=== PATIENT | male | born 1960 | race African-American/Black ===

== ENCOUNTER → 2017-03-29 | Outpatient (CLI) | payer OTHER ==
--- NOTE | 2017-03-29 18:47 | CT ---
EXAMINATION TYPE: CT angio chest DATE OF EXAM: 03/29/2017 5:59 PM COMPARISON: NONE HISTORY: Difficulty breathing with exertion x [address] DLP: 635.00 mGycm Automated exposure control for dose reduction was used. CONTRAST: CTA scan of the thorax is performed with IV Contrast, patient injected with 73 mL of Omnipaque 350, p ulmonary embolism protocol. There are 3-D post processed images.. FINDINGS: There is normal contrast opacification of the thoracic aorta. There is no sign of aneurysm or dissect ion. There is no pericardial effusion. Heart appears enlarged. There is no pleural effusion. There is mild groundglass interstitial density at the lung bases. I see no filling defects in the pulmonary a rteries. There are no hilar masses. There is no mediastinal adenopathy. The bony thorax appears intac t. IMPRESSION: MILD CARDIOMEGALY. NO EVIDENCE OF PULMONARY EMBOLISM. INTERSTITIAL INFILTRATES AT THE LUNG BASES ARE NONSPECIFIC AND COULD RELATE TO CHRONIC INTERSTITIAL LUNG DISEASE.
== END | disposition home or self-care (01) ==
LOC: RADCTMAIN 17:14
PROVIDERS: ATTEND Internal Medicine Critical Care Medicine
DX: R06.00 Dyspnea, unspecified (principal)
CPT/HCPCS: 71275; Q9967

== ENCOUNTER 2017-06-26 10:51 | Day surgery (SDC) | payer OTHER ==
[2017-06-25 10:59] VITALS: BMI 34.2
[~2017-06-26 10:51] MED LIST: LACTATED RINGERS 1,000 ML IV SCH
[2017-06-26 11:58] VITALS: RESP 16; TEMP 98.1
[2017-06-26] MEDS ORDERED: PROPOFOL 10 MG/ML 20 ML VIAL IV ONE (12:09)
--- NOTE | 2017-06-26 12:25 | P.PCN ---
Date of Procedure: 06/26/17 Procedure(s) Performed: BRIEF HISTORY: Patient is a 56-year-old pleasant white male, scheduled for an elective colonoscopy as a part of evaluation of chronic intermittent diarrhea for the last several years duration. He has these episodes once because of the last 4 a day and resolved. In between episodes disease symptomatically. He denies any rectal bleeding. PROCEDURE PERFORMED: Colonoscopy. PREOPERATIVE DIAGNOSIS: Change in bowel habits and intermittent abdominal pain. IV sedation per Anesthesia. PROCEDURE: After informed consent was obtained, the patient, was brought into the endoscopy unit. IV sedation was administered by Anesthesia under continuous monitoring. Digital rectal examination was normal. Initially the Olympus CF- 160 flexible video colonoscope was then inserted in the rectum, gradually advanced into the cecum without any difficulty. Careful examination was performed as the scope was gradually being withdrawn. Ileocecal valve and the appendiceal orifice were visualized and appeared normal. Prep was excellent. Mucosa of the cecum, ascending colon, transverse colon, descending colon, sigmoid colon, and rectum appeared normal. Retroflexion was performed in the rectum and small internal hemorrhoids were seen. The patient tolerated the procedure well. IMPRESSION: Normal-appearing colon from rectum to cecum with no evidence of colorectal neoplasia. Small internal hemorrhoids. RECOMMENDATIONS: Findings of this examination were discussed with the patient as well as his family. He was advised to have a repeat screening colonoscopy in 10 years.
[2017-06-26 12:58] VITALS: BP 120/75; PULSE 76
== END 2017-06-26 13:29 | disposition home or self-care (01) ==
LOC: ORWHC2ENDO 10:51
PROVIDERS: ATTEND Internal Medicine Gastroenterology
DX: K52.9 Noninfective gastroenteritis and colitis, unspecified (principal); F41.9 Anxiety disorder, unspecified; J45.909 Unspecified asthma, uncomplicated; K21.9 Gastro-esophageal reflux disease without esophagitis; F39 Unspecified mood [affective] disorder; Z79.899 Other long term (current) drug therapy; R19.4 Change in bowel habit; K64.8 Other hemorrhoids
CPT/HCPCS: 45378; J2704

== ENCOUNTER → 2018-02-15 | Outpatient (CLI) | payer OTHER ==
--- NOTE | 2018-02-15 11:02 | CT ---
EXAMINATION TYPE: CT chest wo con DATE OF EXAM: 02/15/2018 COMPARISON: 03/29/2017 HISTORY: Patient complains of increasing difficulty breathing, especially when exercising. CT DLP: 272 mGycm. Automated Exposure Control for Dose Reduction was Utilized. TECHNIQUE: CT scan of the thorax is performed without IV contrast and with high-resolution technique . FINDINGS: LUNGS: The lungs are grossly clear, there is no concerning parenchymal mass or nodule identified. T here is no pleural effusion or pneumothorax seen. The tracheobronchial tree is patent. Central and b asilar mild bronchiectasis noted. Peripheral interlobular septal thickening is minimal. MEDIASTINUM: Lack of IV contrast is noted to limit evaluation for mediastinal and especially hilar ad enopathy. There are no definitive greater than 1 cm hilar or mediastinal lymph nodes. Stable mild car diomegaly. OTHER: No additional significant abnormality is seen. IMPRESSION: 1. Mild Central and basilar bronchiectasis. There is very minimal peripheral interlobular septal thic kening primarily involving the mid and upper lung zones which is nonspecific but can be associated wi th early interstitial lung disease correlate clinically.
== END | disposition home or self-care (01) ==
LOC: RADCTMAIN 09:34
PROVIDERS: ATTEND Internal Medicine Critical Care Medicine
DX: J47.9 Bronchiectasis, uncomplicated (principal)
CPT/HCPCS: 71250

== ENCOUNTER → 2018-08-14 | Outpatient (CLI) | payer OTHER ==
--- NOTE | 2018-08-14 10:49 | MM ---
Reason for exam: clinical finding. Indicated problem(s): lump or thickening in the left breast. Physical Findings: Nurse Summary: 1 x 1cm nodule in the right breast at posterior nipple and a 1 x 2cm nodule in the left breast at posterior nipple (nurse ts). [facility] Diagnostic Mammo w CAD TATYANA Bilateral CC and MLO view(s) were taken. Right flame shaped subareolar fibroglandular tissue. These results were verbally communicated with the patient and result sheet given to the patient on 08/14/18. ASSESSMENT: Incomplete: need additional imaging evaluation, BI-RAD 0 RECOMMENDATION: Ultrasound of the left breast. Manage on a clinical basis with regard to bilateral gynecomastia.
--- NOTE | 2018-08-14 10:52 | USB ---
Reason for exam: additional evaluation requested from abnormal screening. US Breast LT Left complete breast ultrasound includes all four quadrants, the retroareolar region and axilla. Finding demonstrates a 3.0 x 2.4 x 0.8cm irregular, hypoechoic lesion at the nipple. Right limited breast ultrasound including focal area of concern, retroareolar and axilla demonstrates a 1.6 x 0.5 x 0.7cm irregular, hypoechoic lesion at the nipple. Consistent with gynecomastia left slightly larger than right. These results were verbally communicated with the patient and result sheet given to the patient on 08/14/18. ASSESSMENT: Benign, BI-RAD 2 RECOMMENDATION: Clinical correlation of both breasts. Manage on a clinical basis with regard to left greater than right gynecomastia.
== END | disposition home or self-care (01) ==
LOC: RADMAMWWP 08:23
PROVIDERS: ATTEND Family Medicine
DX: N63.0 Unspecified lump in unspecified breast (principal)
CPT/HCPCS: 77066

== ENCOUNTER → 2019-02-09 | Outpatient (CLI) | payer OTHER ==
--- NOTE | 2019-02-09 18:31 | CT ---
EXAMINATION TYPE: High-resolution CT chest DATE OF EXAM: 02/09/2019 COMPARISON: 02/15/2018 HISTORY: 58-year-old male Interstitial pulmonary disease. TECHNIQUE: Contiguous high-resolution axial scanning of the chest without IV contrast utilizing 1 mm slice thickness and 1 cm gap per HRCT protocol. Both prone and supine imaging was performed. CT DLP: 1113.5 mGycm Automated exposure control for dose reduction was used. FINDINGS: Are normal size without pericardial effusion. Aorta normal caliber with variant direct takeoff of the left vertebral artery directly from the aorti c arch and bovine configuration. No thoracic lymphadenopathy by CT size criteria. Moderate left and mild right gynecomastia slightly p rogressed from patient's prior exam. Evaluation of the lungs shows mild bronchial wall thickening. No honeycombing, septal lines, dominant groundglass, tree-in-bud opacities, centrilobular nodules, significant bronchiectasis, or thickening of the bronchovascular bundles. HRCT technique limits assessment for small pulmonary nodules. No con solidation or pleural effusion. Visualized upper abdomen show slight diminished attenuation of the liver suggesting fatty infiltratio n. Bones: No osseous destructive process. IMPRESSION: 1. VERY MILD BRONCHIAL WALL THICKENING COULD REPRESENT BRONCHITIS OR ASTHMA. NO SPECIFIC HRCT FINDING S OF INTERSTITIAL LUNG DISEASE OR INTERSTITIAL PNEUMONITIS. THE FINDINGS DESCRIBED PREVIOUSLY ARE NOT APPRECIABLE ON THE CURRENT EXAM. 2. SUGGESTION OF FATTY INFILTRATION OF THE LIVER.
== END ==
LOC: RADCTMAIN 16:12
PROVIDERS: ATTEND Internal Medicine Critical Care Medicine
DX: J84.9 Interstitial pulmonary disease, unspecified (principal)
CPT/HCPCS: 71250

== ENCOUNTER → 2020-03-17 | Outpatient (CLI) | payer OTHER ==
--- NOTE | 2020-03-17 14:40 | CT ---
EXAMINATION TYPE: CT chest wo con DATE OF EXAM: 03/17/2020 COMPARISON: 02/09/2019 HISTORY: increasing difficulty breathing during exertion CT DLP: 1212.7 mGycm. Automated Exposure Control for Dose Reduction was Utilized. TECHNIQUE: CT scan of the thorax is performed without IV contrast. FINDINGS: LUNGS: The lungs are grossly clear, there is no concerning parenchymal mass or nodule identified. T here is no pleural effusion or pneumothorax seen. The tracheobronchial tree is patent. Persistent mi ld peribronchial wall thickening. No interlobular septal thickening. No honeycombing. There is mild b asilar bronchiectasis. Linear changes involving the left upper lobe suggestive of atelectasis or scar . MEDIASTINUM: Lack of IV contrast is noted to limit evaluation for mediastinal and especially hilar ad enopathy. There are no definitive greater than 1 cm hilar or mediastinal lymph nodes. No cardiomega ly or pericardial effusion is seen. Vertebral artery originates from the aortic arch. Bovine arch not ed. Heart is enlarged. OTHER: Diminished attenuation the liver suggestive of fatty infiltration. There is gynecomastia. IMPRESSION: 1. No diagnostic evidence of interstitial lung disease. 2. Mild basilar bronchiectasis.
== END | disposition home or self-care (01) ==
LOC: RADCTMAIN 13:36
PROVIDERS: ATTEND Internal Medicine Critical Care Medicine
DX: J47.9 Bronchiectasis, uncomplicated (principal)
CPT/HCPCS: 71250

== ENCOUNTER → 2022-02-12 | Outpatient (CLI) | payer OTHER ==
--- NOTE | 2022-02-12 21:51 | CT ---
EXAMINATION TYPE: CT chest wo con DATE OF EXAM: 02/12/2022 INDICATION: interstitial lung disease CT DLP: 1078.5 mGy.cm Automated Exposure Control for Dose Reduction was Utilized. TECHNIQUE AND CONTRAST: Axial CT scan of the chest is performed without IV contrast administration in the supine and prone po sitions as per high-resolution protocol. COMPARISON: CT dated 03/17/2020 FINDINGS: Subtle small groundglass opacity is seen at the posterior aspect of the right lung base, nonspecific and probably insignificant. Unremarkable lungs otherwise. No pulmonary cavitation, consolidation, bro nchiectatic changes, honeycombing, subpleural reticulations or cystic changes. Patent trachea and yee n bronchi. No pleural or pericardial effusion. No gross cardiomegaly. Scattered arterial atherosclerotic calcifi cations. Bovine aortic arch. No pathologically enlarged lymph nodes in the chest by this CT scan. Vesna pected hepatic steatosis. Bilateral gynecomastia changes more on the left side. No gross aggressive b one lesion. IMPRESSION: No evidence of interstitial lung disease. Incidental findings as described above.
== END | disposition home or self-care (01) ==
LOC: RADCTMAIN 15:28
PROVIDERS: ATTEND Internal Medicine Critical Care Medicine
DX: J84.9 Interstitial pulmonary disease, unspecified (principal)
CPT/HCPCS: 71250